=== PATIENT | female | born 1955 | race Caucasian/White ===

== ENCOUNTER 2016-12-06 08:40 | Day surgery (SDC) | payer BC ==
--- NOTE | 2016-11-18 13:23 | HP ---
Chief Complaint - Chief Complaint Date of Service: 11/18/16 Chief Complaint: need a colonoscopy History of Present Illness: 61 year old female who needs a colonoscopy. Has had polyps in the past. No blood in stools or changes in bowel habits. - Patient's Past Medical History Patient History - Medical: Hypothyroidism, Other - hashimotos Patient History - Cardiac/Respiratory: No pertinent hx Patient History - Cancer: No Hx of Cancer Patient History - Surgical Procedures: D & C Patient History - Other: None - Family History Family History:: no untoward family reactions to anesthesia, no familial bleeding tendencies, no family history of clotting disorders - Social History Living Situations: spouse Psych History: No pertinent hx Alcohol Use: none Drug Use: none - Immunizations Immunizations Up to Date: No Hx Pneumococcal Vaccination: No History of Influenza Vaccine: No Review Of Systems (GEN) - Review of Systems Generalized/Overall Review: Absent: Weakness, Chills, Fever, Malaise, Fatigue, Weight loss, Weight gain EENTM: Absent: Tearing, Double Vision, Ear Pain Respiratory: Absent: Cough, Shortness of Breath, Orthopnea, Stridor, Wheezing Cardiac: Absent: Chest Pain, Edema, Palpitations Abdominal: Absent: Nausea, Vomiting, Abdominal Pain, Constipation, Diarrhea, Bright blood from rectum Genitourinary: Absent: Burning, Itching, Urgency, Frequency Musculoskeletal: Present: Joint Pain - right foot toe. Absent: Joint Swelling Neurological: Absent: Headache, Anxiety, Depressed, Numbness Skin: Absent: Dryness, Lesions, Rash Immunizations: IMMUNIZATION HX Immunizations Up to Date No History of Influenza Vaccine No Hx Pneumococcal Vaccination No Allergies/Adverse Reactions: Allergies Allergy/AdvReac Type Severity Reaction Status Date / Time diphenhydramine HCl AdvReac Intermediate Other Verified 04/03/14 11:00 [From [facility]] Home Medications: HOME MEDICATIONS Levothyroxine Sodium [Synthroid] 100 mcg PO DAILY 09/08/13 [Last Taken Unknown] Fluticasone Propionate [Flonase] 2 puff HS PRN 11/18/16 [Last Taken Unknown] Exam - Exam Vital Signs: Vital Signs - Last Taken Temp 36.8 C 11/18/16 Pulse 75 Resp BP 145/91 11/18/16 Pulse Ox Ht 5'7 Wt 150 #s Constitutional: Present: Alert, Oriented x3, Cooperative, Well developed, Well nourished, No distress ENT Exam: Present: normal ENT inspection, hearing grossly normal Eye Exam: bilateral eye: normal inspection Respiratory: Present: chest non-tender, lungs clear, normal breath sounds, no respiratory distress, no accessory muscle use Cardiovascular/Chest: Present: normal peripheral pulses, regular rate, rhythm, no murmur Abdomen: Present: Normal bowel sounds, soft, nontender, nondistended /Rectal: Present: Exam deferred Extremity: Present: normal range of motion, normal inspection Skin Exam: Present: normal color, warm/dry Neurologic: Present: alert, normal mood/affect Appearance: Present: appropriate appearance, appropriate insight, neat Eye contact: Present: cooperative, good eye contact, normal speech Thoughts: Present: normal thought pattern, no apparent hallucination Assessment/Plan - Narrative Narrative: Discussed the colonoscopy and the [facility] for it. Prep discussed and consent signed. She agrees. - Assessment/Plan (1) Screen for colon cancer Problem: Acute (2) Hypothyroid Problem: Chronic
[~2016-12-06 08:40] MED LIST: RINGER'S SOLUTION,LACTATED 1,000 ML IV PRN
--- OUTSIDE RECORDS SUMMARY | 2016-12-06 08:44 | XMS REPORT | Continuity of Care Document ---
:1955 Demographics Phone Unavailable Preferred Language Unknown Marital Status Unknown Pentec[employer]al Affiliation Unknown Race Unknown Ethnic Group Unknown Author Organization [facility] ([facility]) Address [place] [address] Phone [phone] Care Team Providers Name Role Phone Unavailable Primary Care Provider Unavailable Source Comments This disclosure is being made pursuant to the Care Everywhere program, applicable federal and state laws, and may not contain all informaitonavailable regarding this patient.[facility] ([facility]) Active Allergies and Adverse Reactions Not on File Current Medications Not on file Active Problems Not on file Social History Tobacco Use Types Packs/Day Years Used Date Never Assessed Plan of Care Health Maintenance Due Date Last Done Comments HCV Screening 1955 Hepatitis B Vaccine (1 of 3 - Primary Series) 1955 Tdap Vaccine 1968 Lipid Disorder Screening 1975 MMR Vaccine 1975 Td Vaccine 1975 Cervical Cancer Screening 1987 Mammogram 1997 Colonoscopy 2007 Influenza Vaccine: Seasonal (#1) 02/05/2016 Results from Last 3 Months Not on file
[2016-12-06] MEDS ORDERED: RINGER'S SOLUTION,LACTATED 1,000 ML IV ONE ×2 (09:45)
[2016-12-06] MEDS ORDERED: RINGER'S SOLUTION,LACTATED 1,000 ML IV PRN (10:10)
--- NOTE | 2016-12-06 10:15 | OR ---
Operative Report - Dictated Report Narrative: DATE OF PROCEDURE: 12/06/2016 PREOPERATIVE DIAGNOSIS: #1 Screening colonoscopy #2 history of colonic polyps POSTOPERATIVE DIAGNOSIS: #1 Screening colonoscopy #2 small polyp of right colon pending final pathology #3 diverticulosis OPERATION: Colonoscopy with cold snare polypectomy SURGEON: Wilmar Melendez M.D. FACS ANESTHESIA : Rosio Alexander CRNA sedation INDICATIONS: This is 61 year old female who presents for a screening colonoscopy. I have discussed the risks, benefits, indications, and contraindications for colonoscopy with the possibility of biopsy and/or polypectomy. She understands, agrees, and wishes to proceed. She has undergone a SUPREP and has tolerated it well. PROCEDURE: The patient was brought to the operating theater and placed into the left lateral decubitus position. The patient underwent sedation per anesthesia , and a digital rectal exam was performed. This was noted to be unremarkable. The patient was noted to have no internal or external hemorrhoids. The Olympus video colonoscope was introduced and advanced into the rectum. The rectum was normal in appearance. The scope was then advanced through the sigmoid, where some diverticular disease was noted. The scope was then advanced to the cecum using standard reduction techniques. The colon was rather tortuous. The appendiceal orifice was noted. The ileocecal valve was noted. The prep appeared to be excellent with a [place] prep score of 9. In the right colon, there was a flat 5 mm polyp, that was snared with the cold snare, removed, and retrieved via the polyp trap. There is good hemostasis. The scope was withdrawn slowly as the ascending, transverse, descending, and sigmoid colon were examined in a circumferential fashion. The scope was brought back into the rectum where it was retroflexed in the lower rectum was examined. The air was decompressed, and the scope was then removed. Withdrawal time was 9-10 minutes. POSTOPERATIVE CONDITION: The patient was awakened and taken to the ambulatory surgery center in good condition. No complications were encountered. FINDINGS: Scattered diverticula throughout colon, predominantly in the sigmoid however. Small polyp right colon, flat, 5 mm. Specimens: 1 EBL: 0 The findings were discussed with the patient and their family. I recommend a follow-up colonoscopy in 5 years for screening purposes. We will call in 48 hours with the biopsy results. Diverticulosis booklet was given and reviewed.
[2016-12-06 11:25] VITALS: BP 106/63
== END 2016-12-06 08:41 | disposition home or self-care (01) ==
LOC: AMB 08:40
PROVIDERS: ATTEND Surgery
PROC: 0DBF8ZX Excision of Right Large Intestine, Via Natural or Artificial Opening Endoscopic, Diagnostic (ICD-10-PCS; principal; 2016-12-06 09:50)
DX: Z12.11 Encounter for screening for malignant neoplasm of colon (principal); K63.5 Polyp of colon; K57.30 Diverticulosis of large intestine without perforation or abscess without bleeding; E03.9 Hypothyroidism, unspecified